=== PATIENT | female | born 1940 | race Caucasian/White ===

== ENCOUNTER 2017-01-08 11:25 | Emergency (ER) | payer MEDICARE ==
[~2017-01-08] VITALS: Ht 162.6 cm; Wt 54.4 kg
[~2017-01-08 11:25] MED LIST: AMBIEN5 MG PO; AMLODIPINE BESYL5 MG PO; ATIVAN0.5 MG PO; BENAZEPRIL HCL20 MG PO; BUPROPION XL300 MG PO; CARBAMAZEPINE200 MG PO; CARVEDILOL25 MG PO; DILTIAZEM 24HR300 MG PO; DOMPERIDONE PO; FLEXERIL10 MG PO; FLUOXETINE HCL20 MG PO; FLUOXETINE HCL40 MG PO; GABAPENTIN300 MG PO; HYDRALAZINE HCL50 MG PO; HYDROCODON-ACE1 EA14 PO; HYDROCODON-ACE1 EAC8 PO; L-METHYLFOLATE15 M1 PO; LEVOTHYROXINE75 MCG PO; LORAZEPAM0.5 MG PO; MICARDIS40 MG PO; MICARDIS80 MG PO; NORCO 5-325 TA1 EACH PO; POTASSIUM CHLO20 ME1 PO; PREDNISONE20 MG PO; RISPERIDONE3 MG PO; TEGRETOL200 MG PO; TRAZODONE HCL50 MG PO; VIBRAMYCIN100 MG PO; VITAMIN B125000 MCG PO; VITAMIN D32000 UNIT PO; WARFARIN SODIUM5 MG PO; XARELTO10 MG PO; ZIPRASIDONE HCL20 MG PO; ZOLPIDEM TARTRA10 MG PO; [UNRECOGNIZED DRUG - OTHER] PO
--- OUTSIDE RECORDS SUMMARY | 2017-01-08 11:27 | XMS ---
Demographics + + + | Address | [address] | | | [place] [address] | + + + | Preferred Language | Unknown | + + + | Marital Status | Unknown | + + + | Islam Affiliation | Unknown | + + + | Race | Unknown | + + + | Ethnic Group | Unknown | + + + Author + + + | Author | [facility] | + + + | Organization | [facility] | + + + | Address | [address] | | | [place] [address] | + + + | Phone | | + + + Care Team Providers + + + + | Care Tree Marker Name | Role | Phone | + + + + Unavailable | Unavailable | + + + + PROBLEMS +---------+ + + +--------+ + + | Type | Condition | ICD9-CM | [id number] | Onset | Condition | SNOMED | | | | Code | Code | Dates | Status | Code | +---------+ + + +--------+ + + | Problem | Hypertensi | I10 | | | Active | [id number] | | | on, | | | | | | | | isolated | | | | | | | | systolic | | | | | | +---------+ + + +--------+ + + | Problem | Hypertensi | I11.9 | | | Active | [id number] | | | ve | | | | | | | | arterioscl | | | | | | | | erotic | | | | | | | | cardiovasc | | | | | | | | ular | | | | | | | | disease | | | | | | +---------+ + + +--------+ + + | Problem | Primary | | F51.01 | | Active | [id number] | | | insomnia | | | | | | +---------+ + + +--------+ + + | 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
--- OUTSIDE RECORDS SUMMARY | 2017-01-08 11:27 | XMS ---
Demographics + + + | Address | [address] | | | [place] [address] | + + + | Preferred Language | Unknown | + + + | Marital Status | Unknown | + + + | Hoahaoism Affiliation | Unknown | + + + | Race | Unknown | + + + | Ethnic Group | Unknown | + + + Author + + + | Author | [facility] | + + + | Organization | [facility] | + + + | Address | [address] | | | [place] [address] | + + + | Phone | | + + + Care Team Providers + + + + | Care Line Crewman Name | Role | Phone | + + + + Unavailable | Unavailable | + + + + PROBLEMS +---------+ + + +--------+ + + | Type | Condition | ICD9-CM | CAB81-[id number] | Onset | Condition | SNOMED | | | | Code | Code | Dates | Status | Code | +---------+ + + +--------+ + + | Problem | Hypertensi | I10 | | | Active | [id number] | | | on, | | | | | | | | isolated | | | | | | | | systolic | | | | | | +---------+ + + +--------+ + + | Problem | Hypertensi | I11.9 | | | Active | [id number] | | | ve | | | [...] | | F51.01 | | Active | 1068349 | | | insomnia | | | | | | +---------+ + + +--------+ + + | 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 | | Active | [id number] | | | sis | | | | | | +---------+ + + +--------+ + + | Problem | Acquired | E03.9 | | | Active | 242350099 | | | hypothyroi | | | | | | | | dism | | | | | | +---------+ + + +--------+ + + | Problem | Bipolar 1 | | F31.9 | | Active | [id number] | | | disorder | | | | | | +---------+ + + +--------+ + + ALLERGIES + + + + +--------+ | Substance | Reaction | Event Type | Date | Status | + + + + +--------+ | Penicillin | swelling at | Drug Allergy | Dec, | Active | | | injection site | | | | | | and ext | | | | + + + + +--------+ | Qvar | somnolence, | Drug Allergy | Dec, | Active | | | palpitation | | | | + + + + +--------+ | Glycerin | Unknown | Drug Allergy | Dec, | Active | + + + + +--------+ | shell fish | vomit | Non Drug | Dec, | Active | | | | Allergy | | | + + + + +--------+ SOCIAL HISTORY No smoking Hx information available PLAN OF CARE + +---------+ | Activity | Details | + +---------+ +---+ | | +---+ + + + | Follow Up | prn Reason:null | + + + | Pending Test | Comp. Metabolic Panel (14) | + + + | Pending Test | Cardiac Panel | + + + | Future/Pending Procedure | EKG | + + + VITAL SIGNS + + + + | Height | 65 in | 2016-12-28 | + + + + | Weight | 121.8 lbs | 2016-12-28 | + + + + | BMI | 20.27 kg/m2 | 2016-12-28 | + + + + | Heart Rate | 85 /min | 2016-12-28 | + + + + | Blood pressure systolic | 155 mm Hg | 2016-12-28 | + + + + | Blood pressure diastolic | 79 mm Hg | 2016-12-28 | + + + + MEDICATIONS + + + + +--------+ + +--------+ | Medicati | Instruct | Dosage | Frequenc | Start | End Date | Duration | Status | | on | ions | | y | Date | | | | + + + + +--------+ + +--------+ | Levothyr | Orally | 1 tablet | 24h | | | | Active | | oxine | Once a | every | | | | | | | Sodium | day | morning | | | | | | | 75 MCG | | on an | | | | | | | | | empty | | | | | | | | | stomach | | | | | | + + + + +--------+ + +--------+ | Risperid | Orally | 1/2 | 24h | | | | Active | | one 3 MG | Once a | tablet | | | | | | | | day | | | | | | | + + + + +--------+ + +--------+ | Ambien | Orally | 1/2 | 24h | | | | Active | | 10 mg | Once a | tablet | | | | | | | | day | at | | | | | | | | | bedtime | | | | | | + + + + +--------+ + +--------+ | Melatoni | Orally | 1 tablet | 24h | | | | Active | | n 3 MG | Once a | at | | | | | | | | day | bedtime | | | | | | | | | as | | | | | | | | | needed | | | | | | | | | with | | | | | | | | | food | | | | | | + + + + +--------+ + +--------+ | L-Methyl | Orally | | 24h | | | | Active | | folate | Once a | | | | | | | | 15 MG | day | | | | | | | + + + + +--------+ + +--------+ | Trazodon | Orally | 2 tablet | | | | | Active | | e HCl 50 | QHS | | | | | | | | mg | | | | | | | | + + + + +--------+ + +--------+ | Vitamin | Orally | 1 | 24h | | | | Active | | D3 5000 | Once a | capsule | | | | | | | UNIT | day | | | | | | | + + + + +--------+ + +--------+ | Vitamin | Orally | 1 tablet | 24h | | | | Active | | B12 100 | Once a | | | | | | | | MCG | day | | | | | | | + + + + +--------+ + +--------+ | Carbamaz | Orally | 1 tablet | 12h | | | | Active | | epine | bid | | | | | | | | 200 MG | | | | | | | | + + + + +--------+ + +--------+ | Omeprazo | Orally | 1 | 24h | | | | Active | | le 20 MG | Once a | capsule | | | | | | | | day | | | | | | | + + + + +--------+ + +--------+ | Duloxeti | Orally | 1 | 24h | | | | Active | | ne HCl | Once a | capsule | | | | | | | 60 MG | day | | | | | | | + + + + +--------+ + +--------+ | Qvar 80 | Inhalati | 1 puff | 12h | | | | Active | | MCG/ACT | on Twice | | | | | | | | | a day | | | | | | | + + + + +--------+ + +--------+ | Vitamin | Orally | | 12h | | | | Active | | C 1000 | bid | | | | | | | | mg | | | | | | | | + + + + +--------+ + +--------+ | Gabapent | Orally | 3 | 8h | | | | Active | | in 300 | tid | capsule | | | | | | | MG | | | | | | | | + + + + +--------+ + +--------+ | Amlodipi | Orally | 1 tablet | 12h | | | | Active | | ne | twice a | | | | | | | | Besylate | day | | | | | | | | 5 MG | | | | | | | | + + + + +--------+ + +--------+ | Benadryl | Orally | 1 tablet | 12h | | | | Active | | Allergy | bid | as | | | | | | | 25 MG | | needed | | | | | | + + + + +--------+ + +--------+ | Benazepr | Orally | 1 tablet | 24h | | | | Active | | il HCl | daily | | | | | | | | 40 MG | | | | | | | | + + + + +--------+ + +--------+ | Multivit | | | | | | | Active | | amins | | | | | | | | + + + + +--------+ + +--------+ RESULTS No Results PROCEDURES + + + + + | Procedure | Date Ordered | Related Diagnosis | Body Site | + + + + + | Est Level IV | December 28, 2016 | | | | Extended | | | | + + + + + | (office) | December 28, 2016 | | | | ELECTROCARDIOGRAM | | | | | REPORT | | | | + + + + + IMMUNIZATIONS No Known Immunizations"
--- OUTSIDE RECORDS SUMMARY | 2017-01-08 11:27 | XMS ---
Demographics + + + | Address | [address] | | | [place] [address] | + + + | Preferred Language | Unknown | + + + | Marital Status | Unknown | + + + | Jewish Affiliation | Unknown | + + + | Race | Unknown | + + + | Ethnic Group | Unknown | + + + Author + + + | Author | [facility] | + + + | Organization | [facility] | + + + | Address | [address] | | | [place] [address] | + + + | Phone | | + + + Care Team Providers + + + + | Care Hot Tar Roofer Helper Name | Role | Phone | + + + + Unavailable | Unavailable | + + + + PROBLEMS +---------+ + + +--------+ + + | Type | Condition | ICD9-CM | FVO51-[id number] | Onset | Condition | SNOMED | | | | Code | Code | Dates | Status | Code | +---------+ + + +--------+ + + | Problem | Hypertensi | I10 | | | Active | [id number] | | | on, | | | | | | | | isolated | | | | | | | | systolic | | | | | | +---------+ + + +--------+ + + | Problem | Hypertensi | I11.9 | | | Active | 67766269 | | | ve | | | [...] | | F51.01 | | Active | 6197436 | | | insomnia | | | | | | +---------+ + + +--------+ + + | 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 | | Active | [id number] | | | sis | | | | | | +---------+ + + +--------+ + + | Problem | Acquired | E03.9 | | | Active | [id number] | | | hypothyroi | | | | | | | | dism | | | | | | +---------+ + + +--------+ + + | Problem | Bipolar 1 | | F31.9 | | Active | [id number] | | | disorder | | | | | | +---------+ + + +--------+ + + ALLERGIES Unknown Allergies SOCIAL HISTORY No smoking Hx information available PLAN OF CARE VITAL SIGNS MEDICATIONS + + + + +--------+ + +--------+ | Medicati | Instruct | Dosage | Frequenc | Start | End Date | Duration | Status | | on | ions | | y | Date | | | | + + + + +--------+ + +--------+ | Levothyr | Orally | 1 tablet | 24h | | | 90 days | Active | | oxine | Once [...] +--------+ + +--------+ RESULTS No Results PROCEDURES No Known procedures IMMUNIZATIONS No Known Immunizations"
--- OUTSIDE RECORDS SUMMARY | 2017-01-08 11:27 | XMS ---
Demographics + + + | Address | [address] | | | [place] [address] | + + + | Preferred Language | Unknown | + + + | Marital Status | Unknown | + + + | Congregation Affiliation | Unknown | + + + | Race | Unknown | + + + | Ethnic Group | Unknown | + + + Author + + + | Author | [facility] | + + + | Organization | [facility] | + + + | Address | [address] | | | [place] [address] | + + + | Phone | | + + + Care Team Providers + + + + | Care Pig Casting Machine Operator Name | Role | Phone | + + + + Unavailable | Unavailable | + + + + PROBLEMS +---------+ + + +--------+ + + | Type | Condition | ICD9-CM | IMO03-EK | Onset | Condition | SNOMED | | | | Code | Code | Dates | Status | Code | +---------+ + + +--------+ + + | Problem | Hypertensi | I10 | | | Active | [id number] | | | on, | | | | | | | | isolated | | | | | | | | systolic | | | | | | +---------+ + + +--------+ + + | Problem | Hypertensi | I11.9 | | | Active | 80480660 | | | ve | | | [...] | | F51.01 | | Active | 5604372 | | | insomnia | | | | | | +---------+ + + +--------+ + + | 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
--- OUTSIDE RECORDS SUMMARY | 2017-01-08 11:27 | XMS ---
Demographics + + + | Address | [address] | | | [place] [address] | + + + | Preferred Language | Unknown | + + + | Marital Status | Unknown | + + + | Christianity Affiliation | Unknown | + + + | Race | Unknown | + + + | Ethnic Group | Unknown | + + + Author + + + | Author | [facility] | + + + | Organization | [facility] | + + + | Address | [address] | | | [place] [address] | + + + | Phone | | + + + Care Team Providers + + + + | Care Golf Starter And Ranger Name | Role | Phone | + + + + Unavailable | Unavailable | + + + + PROBLEMS + + + + + + + + | Type | Condition | ICD9-CM | [id number] | Onset | Condition | SNOMED | | | | Code | Code | Dates | Status | Code | + + + + + + + + | 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 | | 26 November, | Active | [id number] | | | (dislocati | | | 2016 | | | | | on of | | | | | | | | temporoman | | | | | | | | dibular | | | | | | | | joint), | | | | | | | | initial | | | | | | | | encounter | | | | | | + + + + + + + + | Problem | Hypertensi | I10 | | | Active | [id number] | | | on, | | | | | | | | isolated | | | | | | | | systolic | | | | | | + + + + + + + + | Problem | Hypertensi | I11.9 | | | Active | 95571227 | | | ve | | | | | | | | arterioscl | | | | | | | | erotic | | | | | | | | cardiovasc | | | | | | | | ular | | | | | | | | disease | | | | | | + + + + + + + + | Problem | Primary | | F51.01 | | Active | 7669755 | | | insomnia | | | | | | + + + + + + + + | 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 | | Active | 349945396 | | | sis | | | | | | + + + + + + + + | Problem | Acquired | E03.9 | | | Active | 691051910 | | | hypothyroi | | | | | | | | dism | | | | | | + + + + + + + + | Problem | Bipolar 1 | | F31.9 | | Active | [id number] | | | disorder | | | | | | + + + + + + + + ALLERGIES + + + + +--------+ | Substance | Reaction | Event Type | Date | Status | + + + + +--------+ | Penicillin | swelling at | Drug Allergy | November, | Active | | | injection site | | | | | | and ext | | | | + + + + +--------+ | Qvar | somnolence, | Drug Allergy | November, | Active | | | palpitation | | | | + + + + +--------+ | Glycerin | Unknown | Drug Allergy | November, | Active | + + + + +--------+ | shell fish | vomit | Non Drug | 25 May, 2017 | Active | | | | Allergy | | | + + + + +--------+ SOCIAL HISTORY No smoking Hx information available PLAN OF CARE VITAL SIGNS + + + + | Height | 65 in | 2016-11-26 | + + + + | Weight | 122.4 lbs | 2016-11-26 | + + + + | BMI | 20.37 kg/m2 | 2016-11-26 | + + + + | Temperature | 97.6 degrees Fahrenheit | 2016-11-26 | + + + + | Heart Rate | 59 /min | 2016-11-26 | + + + + | Blood pressure systolic | 113 mm Hg | 2016-11-26 | + + + + | Blood pressure diastolic | 48 mm Hg | 2016-11-26 | + + + + MEDICATIONS + + + + +--------+ + +--------+ | Medicati | Instruct | Dosage | Frequenc | Start | End Date | Duration | Status | | on | ions | | y | Date | | | | + + + + +--------+ + +--------+ | Ambien | Orally | 1 tablet | 24h | | | | Active | | 10 MG | Once a | at | | | | | | | | day | bedtime | | | | | | + + + + +--------+ + +--------+ | Prozac | Orally | 1 | 24h | | | | Active | | 60 MG | Once a | capsule | | | | | | | | day | in the | | | | | | | | | morning | | | | | | + [...] | | | | Active | | reza | | | | | | | | | Adult - | | | | | | | [...] | | | Active | | D3 2000 | Once a | capsule | | [...] | | | Active | | C 500 mg | bid | | | | | | | + + + + +--------+ + +--------+ | Domperid | | 8 tab | 24h | | | | Active | | one 10 | | | | | | | | | mg | | | | | | | | + + + + +--------+ + +--------+ | Gabapent | Orally | 2 | | | | | Active | | in 300 | four | capsule | | | | | | | MG | times | | | | | | | | | daily | | | | | [...] + +--------+ | Trazodon | Orally | 1 tablet | | | | | Active [...] + +--------+ | Amlodipi | Orally | 2 tablet | | | | | Active | | ne | QHS | | | | | | | | Besylate | | | | | | | [...] + + + + | Est Level III | November 26, 2016 | | | | Intermediate | | | | + + + + + IMMUNIZATIONS No Known Immunizations"
[2017-01-08] MEDS ORDERED: L-METHYLFOLATE15 M1 PO (12:19)
[2017-01-08] MEDS ORDERED: DULOXETINE HCL60 MG PO (12:21)
[2017-01-08] MEDS ORDERED: TRAZODONE HCL100 MG PO (12:22)
[2017-01-08] MEDS ORDERED: OMEPRAZOLE20 MG PO (12:26)
[2017-01-08] MEDS ORDERED: VITAMIN D2000 UNIT PO (12:26)
[2017-01-08] MEDS ORDERED: BENADRYL ALLERG25 MG PO (12:26)
[2017-01-08] MEDS ORDERED: NEURONTIN300 MG PO (12:26)
[2017-01-08] MEDS ORDERED: VITAMIN B-12100 MCG PO (12:26)
[2017-01-08] MEDS ORDERED: VITAMIN C1000 MG PO (12:26)
[2017-01-08] MEDS ORDERED: PROZAC40 MG PO (12:26)
[2017-01-08] MEDS ORDERED: CYMBALTA60 MG (12:26)
[2017-01-08] MEDS ORDERED: RISPERIDONE3 MG PO (12:26)
== END 2017-01-08 13:26 | disposition home or self-care (01) ==
LOC: ED 11:25
DX: S06.0X9A Concussion with loss of consciousness of unspecified duration, initial encounter (principal); R42 Dizziness and giddiness; E87.1 Hypo-osmolality and hyponatremia; F31.9 Bipolar disorder, unspecified; I10 Essential (primary) hypertension; E03.9 Hypothyroidism, unspecified; J44.9 Chronic obstructive pulmonary disease, unspecified; G50.8 Other disorders of trigeminal nerve; Z88.0 Allergy status to penicillin; Z91.013 Allergy to seafood; Z91.018 Allergy to other foods; W19.XXXA Unspecified fall, initial encounter
CPT/HCPCS: 70450; 80053; 80156; 85025; 99284

== ENCOUNTER 2017-06-27 08:30 | Emergency (ER) | payer MEDICARE ==
[~2017-06-27] VITALS: Ht 162.6 cm; Wt 54.4 kg
--- OUTSIDE RECORDS SUMMARY | ~2017-06-27 | XMS ---
Demographics + + + | Address | [address] | | | [place] [address] | + + + | Preferred Language | Unknown | + + + | Marital Status | Unknown | + + + | Temple Affiliation | Unknown | + + + | Race | Unknown | + + + | Ethnic Group | Unknown | + + + Author + + + | Author | [facility] | + + + | Organization | [facility] | + + + | Address | [address] | | | [place] [address] | + + + | Phone | | + + + Care Team Providers + + + + | Care Film Processing Utility Worker Name | Role | Phone | + + + + Unavailable | Unavailable | + + + + PROBLEMS +---------+ + + +--------+ + + | Type | Condition | ICD9-CM | [id number] | Onset | Condition | SNOMED | | | | Code | Code | Dates | Status | Code | +---------+ + + +--------+ + + | Problem | Hypertensi | I10 | | | Active | [id number] | | | on, | | | | | | | | isolated | | | | | | | | systolic | | | | | | +---------+ + + +--------+ + + | Problem | Hypertensi | I11.9 | | | Active | 93413699 | | | ve | | | [...] | | F51.01 | | Active | 8199572 | | | insomnia | | | | | | +---------+ + + +--------+ + + | 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
--- OUTSIDE RECORDS SUMMARY | ~2017-06-27 | XMS ---
Demographics + + + | Address | [address] | | | [place] [address] | + + + | Preferred Language | Unknown | + + + | Marital Status | Unknown | + + + | Muslim Affiliation | Unknown | + + + | Race | Unknown | + + + | Ethnic Group | Unknown | + + + Author + + + | Author | [facility] | + + + | Organization | [facility] | + + + | Address | [address] | | | [place] [address] | + + + | Phone | | + + + Care Team Providers + + + + | Care Button Breaker Name | Role | Phone | + + + + Unavailable | Unavailable | + + + + PROBLEMS +---------+ + + +--------+ + + | Type | Condition | ICD9-CM | XDB89-RE | Onset | Condition | SNOMED | | | | Code | Code | Dates | Status | Code | +---------+ + + +--------+ + + | Problem | Hypertensi | I10 | | | Active | [id number] | | | on, | | | | | | | | isolated | | | | | | | | systolic | | | | | | +---------+ + + +--------+ + + | Problem | Hypertensi | I11.9 | | | Active | [id number] | | | ve | | | [...] | | F51.01 | | Active | 5607210 | | | insomnia | | | | | | +---------+ + + +--------+ + + | 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 | | Active | [id number] | | | sis | | | | | | +---------+ + + +--------+ + + | Problem | Acquired | E03.9 | | | Active | [id number] | | | hypothyroi | | | | | | | | dism | | | | | | +---------+ + + +--------+ + + | Problem | Bipolar 1 | | F31.9 | | Active | [id number] | | | disorder | | | | | | +---------+ + + +--------+ + + ALLERGIES + + + + +--------+ | Substance | Reaction | Event Type | Date | Status | + + + + +--------+ | Penicillin | swelling at | Drug Allergy | 03 Apr, 2017 | Active | | | injection site | | | | | | and ext | | | | + + + + +--------+ | Qvar | somnolence, | Drug Allergy | Apr, | Active | | | palpitation | | | | + + + + +--------+ | Glycerin | Unknown | Drug Allergy | Apr, | Active | + + + + +--------+ | shell fish | vomit | Non Drug | Apr, | Active | | | | Allergy | | | + + + + +--------+ SOCIAL HISTORY Never Assessed PLAN OF CARE + +---------+ | Activity | Details | + +---------+ +---+ | | +---+ + + + | Follow Up | 6 Months Reason:null | + + + | Future/Pending Procedure | EKG | + + + VITAL SIGNS + + + + | Height | 65 in | 2017-04-06 | + + + + | Weight | 128.2 lbs | 2017-04-06 | + + + + | BMI | 21.33 kg/m2 | 2017-04-06 | + + + + | Heart Rate | 63 /min | 2017-04-06 | + + + + | Blood pressure systolic | 152 mm Hg | 2017-04-06 | + + + + | Blood pressure diastolic | 55 mm Hg | 2017-04-06 | + + + + MEDICATIONS + + + + + + + +--------+ | Medicati | Instruct | Dosage | Frequenc | Start | End Date | Duration | Status | | on | ions | | y | Date | | | | + + + + + + + +--------+ | L-Methyl | Orally | | 24h | | | | Active | | folate | Once a | | | | | | | | 15 MG | day | | | | | | | + + + + + + + +--------+ | Ambien | Orally | 1/2 | 24h | | | | Active | | 10 mg | Once a | tablet | | | | | | | | day | at | | | | | | | | | bedtime | | | | | | + + + + + + + +--------+ | Benadryl | Orally | 1 tablet | 12h | | | | Active | | Allergy | bid | as | | | | | | | 25 MG | | needed | | | | | | + + + + + + + +--------+ | Duloxeti | Orally | 1 | 24h | | | | Active | | ne HCl | Once a | capsule | | | | | | | 60 MG | day | | | | | | | + + + + + + + +--------+ | Amlodipi | Orally | 1 tablet | 12h | | | | Active | | ne | twice a | | | | | | | | Besylate | day | | | | | | | | 5 MG | | | | | | | | + + + + + + + +--------+ | Melatoni | Orally | [...] + + + + + + + +--------+ | Vitamin | Orally | 1 | 24h | | | | Active | | D3 5000 | Once a | capsule | | | | | | | UNIT | day | | | | | | | + + + + + + + +--------+ | Triamcin | External | 1 | 12h | 03 Oct, | | 14 days | Active | | olone | ly Twice | applicat | | 2017 | | | | | Acetonid | a day | ion to | | | | | | | e 0.5 % | | affected | | | | | | | | | area | | | | | | + + + + + + + +--------+ | Acetyl | Oral | 1 | 12h | 03 Oct, | | | Active | | L-Carnit | Twice a | capsule | | 2017 | | | | | ine 400 | day | | | | | | | | mg | | | | | | | | + + + + + + + +--------+ | Benazepr | Orally | 1 tablet | 24h | | | | Active | | il HCl | daily | | | | | | | | 40 MG | | | | | | | | + + + + + + + +--------+ | Benazepr | Orally | 1 tablet | 24h | | | 30 | Active | | il HCl | daily | | | | | | | | 40 MG | | | | | | | | + + + + + + + +--------+ | Vitamin | Orally | 1 tablet | 24h | | | | Active | | B12 100 | Once a | | | | | | | | MCG | day | | | | | | | + + + + + + + +--------+ | Multivit | | | | | | | Active | | amins | | | | | | | | + + + + + + + +--------+ | Omeprazo | Orally | 1 | 24h | | | | Active | | le 20 MG | Once a | capsule | | | | | | | | day | | | | | | | + + + + + + + +--------+ | Levothyr | Orally | [...] + + + + + + + +--------+ | Vitamin | Orally | | 12h | | | | Active | | C 1000 | bid | | | | | | | | mg | | | | | | | | + + + + + + + +--------+ | Risperid | Orally | 1/2 | 24h | | | | Active | | one 3 MG | Once a | tablet | | | | | | | | day | | | | | | | + + + + + + + +--------+ | Gabapent | Orally | 3 | 8h | | | | Active | | in 300 | tid | capsule | | | | | | | MG | | | | | | | | + + + + + + + +--------+ | Alpha | Oral | 1 | 12h | 03 Oct, | | | Active | | Lipoic | Twice a | capsule | | 2017 | | | | | Acid 200 | day | | | | | | | | mg | | | | | | | | + + + + + + + +--------+ | Carbamaz | Orally | 1 tablet | 12h | | | | Active | | epine | bid | | | | | | | | 200 MG | | | | | | | | + + + + + + + +--------+ | Trazodon | Orally | 2 tablet | | | | | Active | | e HCl 50 | QHS | | | | | | | | mg | | | | | | | | + + + + + + + +--------+ | Qvar 80 | Inhalati | 1 puff | 12h | | | | Active | | MCG/ACT | on Twice | | | | | | | | | a day | | | | | | | + + + + + + + +--------+ RESULTS No Results PROCEDURES No Known procedures IMMUNIZATIONS No Known Immunizations MEDICAL (GENERAL) HISTORY + + + + | Type | Description | Date | + + + + | Medical History | Bipolar d/o dx'ed 1991, | | | | [facility] | | | | [facility] | | + + + + | Medical History | Hypertension | | + + + + | Medical History | Hypothyroid | | + + + + | Medical History | Celiac Disease 04/2012 | | + + + + | Medical History | Chronic Constipation | | + + + + | Medical History | Menopause age 41 | | + + + + | Medical History | Pulmonary Embolis 12/16/12 | | | | post cholecystectomy | | + + + + | Medical History | Anticoagulation started | | | | 12/16/12 coumadin -ended | | | | 04/03/13 | | + + + + | Medical History | Hyponatremia consistant | | | | with water intoxication | | | | 01/03/13 | | + + + + | Medical History | COPD | | + + + + | Medical History | severe Cervical Stenosis | | | | with myelopathy: Cervical | | | | Spinal Cord Compression, | | | | Cervical Spondylosis and | | | | Myelopathy, 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 s/p anterior cervical | | | | discectomy and fusion C3-4, | | | | C4-5 01/17/15 | | + + + + | Medical History | Gastroparesis | | + + + + | Medical History | Estimated dietary calcium | | | | intake 400mg/day 09/12/12 | | + + + + | Medical History | ABIM Survey for patients | | | | with high blood pressure | | | | provided. 11/10/12 | | + + + + | Medical History | Shingles vaccine | | | | recommended 09/12/12 | | + + + + | Medical History | Pt does not get | | | | vaccinations 09/12/12 | | + + + + | Surgical History | Operator Weapon Locating Radar | | | | Suri Bean | | + + + + | Surgical History | Tonsillectomy | 1948 | + + + + | Surgical History | Squamous cell cancer R | 2001 | | | thigh | | + + + + | Surgical History | Colonoscopy | 2009 | + + + + | Surgical History | Mammogram | many yrs ago | + + + + | Surgical History | Papsmear | 2008 | + + + + | Surgical History | Coronary angiogram - 10-15% | 2006 | | | stenosis per pt. | | + + + + | Surgical History | DEXA | 1997 | + + + + | Surgical History | laproscopic | 12/14/12 | | | Dr Jero Bennett | | + + + + | Surgical History | PFT - FVC 71%, FEV1 65%, | 02/21/13 | | | FEV1/FVC 91% (moderate | | | | obstructive airway disease, | | | | moderately severe | | | | diffusing defect) | | + + + + | Surgical History | 48hr holter | 03/14/13 | + + + + | Surgical History | Sacral fractures & Right | 09/01/13 | | | pubic bone fracture - MRI R | | | | hip | | + + + + | Surgical History | Anterior cervical | 01/17/15 | | | discectomy and fusion C3-4, | | | | C4-5 Dr Garcia | | + + + + | Surgical History | R hip ORIF Dr Thorpe | 08/28/15 | + + + + | Surgical History | EGD Dr Prado: LA grade B | 04/09/16 | | | esophagitis, gastric | | | | erosion, hiatal hernia | | + + + + | Hospitalization History | [facility] re: acute cholecystitis | 12/13/12 | + + + + | Hospitalization History | [facility] re: SOB, PE | 12/16-12/19/12 | + + + + | Hospitalization History | [facility] re: SOB | 02/01/13 | + + + + | Hospitalization History | [facility] re: fall | 06/05/13 | + + + + | Hospitalization History | [facility] | 01/17-01/18/15 | | | [place] | | + + + + | Hospitalization History | [facility] re: fall, hip | 08/27-08/30/15 | | | fracture d/c to SNF | | + + + + | Hospitalization History | [facility] re: fall | 01/08/17 | + + + +"
--- OUTSIDE RECORDS SUMMARY | ~2017-06-27 | XMS | Clinical Summary ---
Demographics + + + | Address | [address] | | | [place] [address] | + + + | Home Phone | | + + + | Preferred Language | Unknown | + + + | Marital Status | Single | + + + | Uatsdin Affiliation | Unknown | + + + | Race | White | + + + | Ethnic Group | Not or | + + + Author + + + | Author | [facility] | + + + | Organization | [facility] | + + + | Address | Unknown | + + + | Phone | Unavailable | + + + Support +------+ + + + +-------+ | Name | Relationship | Address | Phone | +------+ + + + +-------+ ECON | [address] | [place], [place] | [address] | +------+ + + + +-------+ Care Team Providers + +------+-------+ | Care Veterinary Technologist Name | Role | Phone | + +------+-------+ | Patrick Villalta DO | PP | tel | + +------+-------+ Source Comments LEAH is fully live on both [facility] Ambulatory and [facility] InPatient.[facility] Allergies Not on File Current Medications Not on file Active Problems Not [...] on file | | + + + Plan of Treatment + + + + + | Health Maintenance | Due Date | Last Done | Comments | + + + + + | INFLUENZA VACCINE | | | | | (FLU SHOT) | 7 | | | + + + + + Results Not on filefrom Last 3 Months"
--- OUTSIDE RECORDS SUMMARY | ~2017-06-27 | XMS ---
Demographics + + + | Address | [address] | | | [place] [address] | + + + | Preferred Language | Unknown | + + + | Marital Status | Unknown | + + + | Episcopalian Affiliation | Unknown | + + + | Race | Unknown | + + + | Ethnic Group | Unknown | + + + Author + + + | Author | [facility] | + + + | Organization | [facility] | + + + | Address | [address] | | | [place] [address] | + + + | Phone | | + + + Care Team Providers + + + + | Care Branch Officer Name | Role | Phone | + + + + Unavailable | Unavailable | + + + + PROBLEMS +---------+ + + +--------+ + + | Type | Condition | ICD9-CM | [id number] | Onset | Condition | SNOMED | | | | Code | Code | Dates | Status | Code | +---------+ + + +--------+ + + | Problem | Hypertensi | I10 | | | Active | [id number] | | | on, | | | | | | | | isolated | | | | | | | | systolic | | | | | | +---------+ + + +--------+ + + | Problem | Hypertensi | I11.9 | | | Active | 36253547 | | | ve | | | [...] | | F51.01 | | Active | 9057160 | | | insomnia | | | | | | +---------+ + + +--------+ + + | 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 | | Active | 112223957 | | | sis | | | | | | +---------+ + + +--------+ + + | Problem | Acquired | E03.9 | | | Active | [id number] | | | hypothyroi | | | | | | | | dism | | | | | | +---------+ + + +--------+ + + | Problem | Bipolar 1 | | F31.9 | | Active | [id number] | | | disorder | | | | | | +---------+ + + +--------+ + + ALLERGIES + + + + +--------+ | Substance | Reaction | Event Type | Date | Status | + + + + +--------+ | Penicillin | swelling at | Drug Allergy | 20 Jan, 2017 | Active | | | injection site | | | | | | and ext | | | | + + + + +--------+ | Qvar | somnolence, | Drug Allergy | Jan, | Active | | | palpitation | | | | + + + + +--------+ | Glycerin | Unknown | Drug Allergy | Jan, | Active | + + + + +--------+ | shell fish | vomit | Non Drug | Jan, | Active | | | | Allergy | | | + + + + +--------+ SOCIAL HISTORY Never Assessed PLAN OF CARE + +---------+ | Activity | Details | + +---------+ +---+ | | +---+ + + + | Follow Up | prn Reason:null | + + + VITAL SIGNS + + + + | Height | 65 in | 2017-01-21 | + + + + | Weight | 121.4 lbs | 2017-01-21 | + + + + | BMI | 20.20 kg/m2 | 2017-01-21 | + + + + | Heart Rate | 88 /min | 2017-01-21 | + + + + | Blood pressure systolic | 150 mm Hg | 2017-01-21 | + + + + | Blood pressure diastolic | 69 mm Hg | 2017-01-21 | + + + + MEDICATIONS + [...] 1991, | | | | [facility] | | | | [facility] | [...] + + + | Surgical History | [address] | | | | Suri Bean | [...] + | Surgical History | DEXA | 1996 | + + + + | [facility] | | | Suri Cameron | | + + + + | Hospitalization History | [facility] re: fall, hip | 08/27-08/30/15 | | | fracture d/c to SNF | | + + + + | Hospitalization History | [facility] re: fall | 01/08/17 | + + + +"
--- OUTSIDE RECORDS SUMMARY | ~2017-06-27 | XMS ---
Demographics + + + | Address | [address] | | | [place] [address] | + + + | Preferred Language | Unknown | + + + | Marital Status | Unknown | + + + | Holiness Affiliation | Unknown | + + + | Race | Unknown | + + + | Ethnic Group | Unknown | + + + Author + + + | Author | [facility] | + + + | Organization | [facility] | + + + | Address | [address] | | | [place] [address] | + + + | Phone | | + + + Care Team Providers + + + + | Care Golf Course Designer Name | Role | Phone | + + + + Unavailable | Unavailable | + + + + PROBLEMS +---------+ + + +--------+ + + | Type | Condition | ICD9-CM | [id number] | Onset | Condition | SNOMED | | | | Code | Code | Dates | Status | Code | +---------+ + + +--------+ + + | Problem | Hypertensi | I10 | | | Active | [id number] | | | on, | | | | | | | | isolated | | | | | | | | systolic | | | | | | +---------+ + + +--------+ + + | Problem | Hypertensi | I11.9 | | | Active | 44236648 | | | ve | | | [...] | | F51.01 | | Active | 1957209 | | | insomnia | | | | | | +---------+ + + +--------+ + + | 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 | | Active | 949651155 | | | sis | | | | | | +---------+ + + +--------+ + + | Problem | Acquired | E03.9 | | | Active | [id number] | | | hypothyroi | | | | | | | | dism | | | | | | +---------+ + + +--------+ + + | Problem | Bipolar 1 | | F31.9 | | Active | [id number] | | | disorder | | | [...] + + | Est Level III | January 21, 2017 | | | | Intermediate | | | | + + + + + IMMUNIZATIONS No Known Immunizations"
[~2017-06-27 08:30] MED LIST changes: +BENADRYL ALLERG25 MG PO; +CYMBALTA60 MG; +DULOXETINE HCL60 MG PO; +NEURONTIN300 MG PO; +OMEPRAZOLE20 MG PO; +PROZAC40 MG PO; +TRAZODONE HCL100 MG PO; +VITAMIN B-12100 MCG PO; +VITAMIN C1000 MG PO; +VITAMIN D2000 UNIT PO
[2017-06-27] MEDS ORDERED: METHYLPREDNISOLO4 M1 PO (08:51)
[2017-06-27] MEDS ORDERED: ALLEGRA ALLERG180 MG PO (08:51)
== END 2017-06-27 09:00 | disposition home or self-care (01) ==
LOC: ED 08:30
DX: L23.9 Allergic contact dermatitis, unspecified cause (principal); F31.9 Bipolar disorder, unspecified; I10 Essential (primary) hypertension; E03.9 Hypothyroidism, unspecified; Z86.711 Personal history of pulmonary embolism; Z90.49 Acquired absence of other specified parts of digestive tract; Z98.890 Other specified postprocedural states; Z88.0 Allergy status to penicillin; Z91.013 Allergy to seafood; Z91.018 Allergy to other foods
CPT/HCPCS: 99283

== ENCOUNTER 2018-08-05 16:45 | Emergency (ER) | payer MEDICARE ==
[~2018-08-05] VITALS: Ht 162.6 cm; Wt 52.2 kg
[~2018-08-05 16:45] MED LIST changes: +ALLEGRA ALLERG180 MG PO; +METHYLPREDNISOLO4 M1 PO
== END 2018-08-05 17:22 | disposition home or self-care (01) ==
LOC: ED 16:45
DX: S09.90XA Unspecified injury of head, initial encounter (principal); W01.198A Fall on same level from slipping, tripping and stumbling with subsequent striking against other object, initial encounter; F31.9 Bipolar disorder, unspecified; I10 Essential (primary) hypertension; E03.9 Hypothyroidism, unspecified; J44.9 Chronic obstructive pulmonary disease, unspecified; Z88.0 Allergy status to penicillin; Z91.013 Allergy to seafood; Z88.8 Allergy status to other drugs, medicaments and biological substances; Z79.899 Other long term (current) drug therapy
CPT/HCPCS: 99283

== ENCOUNTER 2019-05-08 10:43 | Emergency (ER) | payer MEDICARE ==
--- OUTSIDE RECORDS SUMMARY | ~2019-05-08 | XMS | Encounter Summary ---
Demographics + + + | Address | [address] | | | [place] [address] | + + + | Home Phone | | + + + | Preferred Language | Unknown | + + + | Marital Status | Single | + + + | Episcopalian Affiliation | Unknown | + + + | Race | White | + + + | Ethnic Group | Not or | + + + Author + + + | Author | [facility] | + + + | Organization | [facility] | + + + | Address | Unknown | + + + | Phone | Unavailable | + + + Support + + + + + | Name | Relationship | Address | Phone | + + + + + | Ankita Godoy | ECON | [address] | | | | [address], [place] | | | | | [address] | | + + + + + Care Team Providers + +------+ + | Care Kettle Fry Cook Operator Name | Role | Phone | + +------+ + | Patrick Villalta DO | PCP | | + +------+ + Encounter Details +--------+ + + + + | Date | Type | Department | Care Team | Description | +--------+ + + + + | 01/10/ | Abstract | [facility] | Clinic, | | | 2012 | | [facility] [address] | Gastroenterology | | | | | [facility] | | | | | | Mailcode: [place] | | | | | | [facility] | | | | | | Healing, [address] | | | | | | [facility] [place] | | | | | | [address] | | | | | | [phone] | | | +--------+ + + + + Social History + +-------+ +--------+------+ | Tobacco Use | Types | Packs/Day | Years | Date | | | | | Used | | + +-------+ +--------+------+ | Never Assessed | | | | | + +-------+ +--------+------+ + + + | Sex Assigned at | Date Recorded | | | | + + + | Not on file | | + + + + + + + | Job Start Date | Occupation | Industry | + + + + | Not on file | Not on file | Not on file | + + + + + + + + | Travel History | Travel Start | Travel End | + + + + + + | No recent travel history available. | + + documented as of this encounter Plan of Treatment Not on filedocumented as of this encounter Visit Diagnoses Not on filedocumented in this encounter"
--- OUTSIDE RECORDS SUMMARY | ~2019-05-08 | XMS | Clinical Summary ---
Demographics + + + | Address | [address] | | | [place] [address] | + + + | Home Phone | | + + + | Preferred Language | Unknown | + + + | Marital Status | Single | + + + | Scientology Affiliation | Unknown | + + + | Race | White | + + + | Ethnic Group | Not or | + + + Author + + + | Author | [facility] | + + + | Organization | [facility] | + + + | Address | Unknown | + + + | Phone | Unavailable | + + + Support + + + + + | Name | Relationship | Address | Phone | + + + + + | Pat Walt | ECON | [address] | | | | [place], [place] | | | | | [address] | | + + + + + Care Team Providers + +------+ + | Care Wet Trimmer Name | Role | Phone | + +------+ + | Patrick Villalta DO | PCP | | + +------+ + Source Comments LEAH is fully live on both [facility] and [facility] InPatient.[facility] Allergies Not on File Medications Not on file Active Problems Not on file Social History + +-------+ +--------+------+ | Tobacco [...] recent travel history available. | + + Last Filed Vital Signs Not on file Plan of Treatment + + + + + | Health Maintenance | Due Date | Last Done | Comments | + + + + + | Pneumococcal | | | | | vaccination (1 of 2 | 7 | | | | - PCV13) | | | | + + + + + | Influenza (Flu) | | | | | vaccination (#1) | 9 | | | + + + + + Results Not on filefrom Last 3 Months"
--- OUTSIDE RECORDS SUMMARY | ~2019-05-08 | XMS | Clinical Summary ---
Demographics + + + | Address | [address] | | | [place] [address] | + + + | Home Phone | | + + + | Preferred Language | Unknown | + + + | Marital Status | Single | + + + | Anabaptism Affiliation | Unknown | + + + | Race | White | + + + | Ethnic Group | Not or | + + + Author + + + | Author | [facility] | + + + | Organization | [facility] | + + + | Address | Unknown | + + + | Phone | Unavailable | + + + Support + + + + + | Name | Relationship | Address | Phone | + + + + + | Pat Walt | ECON | [address] | | | | [place], [place] | | | | | [address] | | + + + + + Care Team Providers + +------+ + | Care Hearing Therapist Name | Role | Phone | + +------+ + | Patrick Villalta DO | PCP | | + +------+ + Source Comments LEAH is fully live on both [facility] Ambulatory and [facility] InPatient.[facility] Allergies Not on File Medications Not on [...]
--- OUTSIDE RECORDS SUMMARY | ~2019-05-08 | XMS | Clinical Summary ---
Demographics + + + | Address | [address] | | | [place] [address] | + + + | Home Phone | | + + + | Preferred Language | Unknown | + + + | Marital Status | Single | + + + | Confucianism Affiliation | Unknown | + + + | Race | Unknown | + + + | Ethnic Group | Unknown | + + + Author + + + | Author | [facility] | | | and [place] | + + + | Organization | [facility] | | | and [facility] | + + + | Address | Unknown | + + + | Phone | Unavailable | + + + Support + + +---------+ + | Name | Relationship | Address | Phone | + + +---------+ + | Ankita Godoy | NA | | | | | NA, | | + + +---------+ + Care Team Providers + +------+ + | Care Stave Log Ripsaw Operator Name | Role | Phone | + +------+ + | Patrick Villalta DO | PCP | | + +------+ + Allergies + + + + + + | Active Allergy | Reactions | Severity | Noted | Comments | | | | | Date | | + + + + + + | Penicillins | Swelling | Low | 02/23/20 | After injection my | | | | | 13 | whole leg swelled | | | | | | up | + + + + + + | Shellfish | Nausea And Vomiting | Low | 02/08/20 | | | | | | 14 | | + + + + + + | Adhesive & Tape | Rash | Low | 02/28/20 | "Adhesive Tape" | | | | | 14 | | + + + + + + Medications + + + +---------+------+------+-------+ | Medication | Sig | Dispensed | Refills | Star | End | Statu | | | | | | t | Date | s | | | | | | Date | | | + + + +---------+------+------+-------+ | LORazepam (ATIVAN) | Take 0.5 mg by mouth | | 0 | | | Activ | | 0.5 mg tablet | 2 times daily. | | | | | e | + + + +---------+------+------+-------+ | FLUoxetine | Take 40 mg by mouth | | 0 | | | Activ | | (PROZAC) 20 mg | Daily. | | | | | e | | capsule | | | | | | | + + + +---------+------+------+-------+ | levothyroxine | Take 75 mcg by mouth | | 0 | | | Activ | | (SYNTHROID, | every morning | | | | | e | | LEVOTHROID) 75 MCG | (before breakfast). | | | | | | | tablet | | | | | | | + + + +---------+------+------+-------+ | traZODone | Take 50 mg by mouth | | 0 | | | Activ | | (DESYREL) 50 mg | 2 times daily. | | | | | e | | tablet | | | | | | | + + + +---------+------+------+-------+ | carBAMazepine | Take 200 mg by mouth | | 0 | | | Activ | | (TEGRETOL) 200 mg | 3 times daily. | | | | | e | | tablet | | | | | | | + + + +---------+------+------+-------+ | diltiazem | Take 300 mg by mouth | | 0 | | | Activ | | (CARDIZEM CD) 300 mg | Daily. | | | | | e | | 24 hr capsule | | | | | | | + + + +---------+------+------+-------+ | amLODIPine | Take 5 mg by mouth | | 0 | | | Activ | | (NORVASC) 5 mg | nightly. | | | | | e | | tablet | | | | | | | + + + +---------+------+------+-------+ | Multiple | Take by mouth | | 0 | | | Activ | | Vitamins-Minerals | Daily. | | | | | e | | (MULTIVITAMIN PO) | | | | | | | + + + +---------+------+------+-------+ | Ascorbic Acid | Take 1,000 mg by | | 0 | | | Activ | | (VITAMIN C) 1000 MG | mouth Daily. | | | | | e | | tablet | | | | | | | + + + +---------+------+------+-------+ | cholecalciferol | Take 1,000 Units by | | 0 | | | Activ | | (VITAMIN D-3) 1,000 | mouth Daily. | | | | | e | | units capsule | | | | | | | + + + +---------+------+------+-------+ | benazepril | Take 40 mg by mouth | | 0 | | | Activ | | (LOTENSIN) 40 MG | nightly. | | | | | e | | tablet | | | | | | | + + + +---------+------+------+-------+ | L-Methylfolate 15 | Take 15 mg by mouth | | 0 | | | Activ | | MG TABS | Daily. | | | | | e | + + + +---------+------+------+-------+ | zolpidem (AMBIEN) | Take 5 mg by mouth | | 0 | | | Activ | | 5 mg tablet | nightly as needed | | | | | e | | | for Sleep. | | | | | | + + + +---------+------+------+-------+ | buPROPion | Take 300 mg by mouth | | 0 | | | Activ | | (WELLBUTRIN XL) 300 | every morning. | | | | | e | | mg 24 hr tablet | | | | | | | + + + +---------+------+------+-------+ | ziprasidone | Take 40 mg by mouth | | 0 | | | Activ | | (GEODON) 40 mg | as needed. | | | | | e | | capsule | | | | | | | + + + +---------+------+------+-------+ | melatonin 3 mg | Take 3 mg by mouth | | 0 | | | Activ | | TABS | nightly. | | | | | e | + + + +---------+------+------+-------+ | diazepam (VALIUM) | Take 5 mg by mouth | | 0 | | | Activ | | 5 mg tablet | Daily as needed for | | | | | e | | | Anxiety. 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/21/2014 | + + + | Heartburn | 01/26/2014 | + + + | Weight loss | 09/26/2013 | + + + | Nocturnal hypoxemia due to emphysema | 09/26/2013 | + + + | detention current use of systemic steroids | 09/26/2013 | + + + | Physical deconditioning | 05/14/2013 | + + + | COPD (chronic obstructive pulmonary disease) | 02/22/2013 | + + + | Shortness of breath | 02/22/2013 | + + + | Hypertension | | + + + | History of pulmonary embolism | | + + + | Bipolar disorder | | + + + | Hypothyroidism | | + + + Immunizations + + + + | Name | Dates Previously Given | Next Due | + + + + | INFLUENZA PF 19 Y OR | 04/04/2013 | | | >,TRIVALENT | | | | RECOMBINANT | | | + + + + | PNEUMOCOCCAL | 12/03/2012 | | | POLYSACCHARIDE | | | | 23-VALENT (PPSV23) | | | + + + + Family History + + +------+ + | Medical History | Relation | Name | Comments | + + +------+ + | Alcohol abuse | Father | | | + + +------+ + | Hypertension | Father | | | + + +------+ + | Macular degen | Father | | | + + +------+ + | Mental illness | Father | | | + + +------+ + | Diabetes | Maternal | | | | | Grandmoth | | | | | er | | | + + +------+ + | Celiac disease | Mother | | | + + +------+ + | Muscle disease | Mother | | ALS | + + +------+ + | Cancer | Sister | | melanoma | + + +------+ + | Rheum arthritis | Sister | | | + + +------+ + + +------+ + + | Relation | Name | Status | Comments | + +------+ + + | Brother | | Alive | | + +------+ + + | Father | | Alive | | + +------+ + + | Maternal Grandmother | | | | | | | (Age | | | | | 96) | | + +------+ + + | Mother | | | ALS | | | | (Age | | | | | 78) | | + +------+ + + | Sister | | | melanoma | | | | (Age | | | | | 34) | | + +------+ + + | Sister | | Alive | | + +------+ + + Social History + + + +--------+ + | Tobacco Use | Types | Packs/Day | Years | Date | | | | | Used | | + + + +--------+ + | Former Smoker | Cigarettes | 3 | 10 | Quit: 07/05/1991 | + + + +--------+ + + +---+---+---+ | Smokeless Tobacco: | | | | | Never Used | | | | + +---+---+---+ + + +---------+ + | Alcohol Use | Drinks/We | oz/Week | Comments | | | ek | | | + + +---------+ + | No | 0 | 0.0 | | | | Standard | | | | | drinks or | | | | | | | | | | equivalen | | | | | t | | | + + +---------+ + + + + | Sex Assigned at [...] | + + Last Filed Vital Signs + + + + | Vital Sign | Reading | Time Taken | + + + + | Blood Pressure | 152/79 | 12/11/2015 1500 PDT | + + + + | Pulse | 70 | 12/11/2015 1500 PDT | + + + + | Temperature | 35.5 C (95.9 F) | 01/18/2015 1100 PDT | + + + + | Respiratory Rate | 16 | 12/11/2015 1500 PDT | + + + + | Oxygen Saturation | 91% | 01/18/2015 1100 PDT | + + + + | Inhaled Oxygen | - | - | | Concentration | | | + + + + | Weight | 53.3 kg (117 lb 9.6 | 12/11/2015 1500 PDT | | | oz) | | + + + + | Height | 157.5 cm (5' 2") | 12/11/2015 1500 PDT | + + + + | Body Mass Index | 21.51 | 12/11/2015 1500 PDT | + + + + Plan of Treatment + + + + + | Health Maintenance | Due Date | Last Done | Comments | + + + + + | Vaccine: | | | | | Dtap/Tdap/Td (1 - | 1 | | | | Tdap) | | | | + + + + + | Vaccine: Zoster (1 | | | | | of 2) | 2 | | | + + + + + | Breast Cancer | | | | | Screening | 7 | | | + + + + + | Vaccine: | | 12/03/2012 | | | Pneumococcal 65+ | 4 | | | | Low/Medium Risk (2 | | | | | of 2 - PCV13) | | | | + + + + + | Vaccine: Influenza | | 04/04/2013 | | | (#1) | 9 | | | + + + + + Implants + +------+--------+ +--------+--------+--------+ | Implanted | Type | Area | Manufacture | Device | Shelf | Model | | | | | r | | Expira | / | | | | | | Identi | tion | Serial | | | | | | fier | Date | / Lot | + +------+--------+ +--------+--------+--------+ | Arsalan Garcian Pls 1cc Aseptic | | Anteri | OSTEOTECH - | | 08/08/ | [id number] | | - [id number]: Qty: | | or: | OSTT | | 2017 | | | 1 on 01/17/2015 by Jose, | | Spine | | | | /[id number] | | Blaine Berry MD | | Enrique | | | | 4-132 | | | | al | | | | / | + +------+--------+ +--------+--------+--------+ | Allograft Lordotic [id number] - | | Anteri | [place] | | 06/12/ | [id number] | | [id number]: Qty: 1 on | | or: | DANEK - DIV | | 2016 | | | 01/17/2015 by Blaine Garcia, | | Spine | [employer] | | | /[id number] | | MD | | Cervic | - SFDK | | | 468 | | | | al | | | | /[id number] | | | | | | | | 4464 | + +------+--------+ +--------+--------+--------+ | Allograft Lordotic [id number] - | | Anteri | [facility] | | 08/15/ | [id number] | | [id number]: Qty: 1 on | | or: | DANEK - DIV | | 2017 | | | 01/17/2015 by Blaine Garcia, | | Spine | [employer] | | | /[id number] | | MD | | Cervic | - SFDK | | | 173 | | | | al | | | | /[id number] | | | | | | | | 4837 | + +------+--------+ +--------+--------+--------+ | Imp Spn Plt Ti Zevo 35mm 2lvl | | Anteri | [place] | | | [id number] | | - [id number]: Qty: 1 | | or: | DANEK - DIV | | | 5 / / | | on 01/17/2015 by Blaine Garcia | | Spine | [employer] | | | | | MD Kristi | | Berthaic | - SFDK | | | | | | | al | | | | | + +------+--------+ +--------+--------+--------+ | Screw D-Thrd Slf-Drl 3.5x15mm | | Anteri | [facility] | | | [id number] | | - [id number]: Qty: 2 | | or: | DANEK - DIV | | | 5 / | | on 01/17/2015 by Blaine Garcia | | Spine | [employer] | | | | | MD Kristi | | Cervic | - SFDK | | | | | | | al | | | | | + +------+--------+ +--------+--------+--------+ | Screw D-Thrd Slf-Drl 3.5x17mm | | Anteri | [facility] | | | [id number] | | - [id number]: Qty: 2 | | or: | DANEK - DIV | | | 7 / | | on 01/17/2015 by Blaine Garcia | | Spine | [employer] | | | | | MD Kristi | | Berthaic | - SFDK | | | | | | | al | | | | | + +------+--------+ +--------+--------+--------+ | Screw D-Thrd Slf-Drl 4.0x15mm | | Anteri | [place] | | | [id number] | | - [id number]: Qty: 2 | | or: | DANEK - DIV | | | / | | on 01/17/2015 by Blaine Garcia | | Spine | [employer] | | | | | MD Kristi | | Cervic | - SFDK | | | | | | | al | | | | | + +------+--------+ +--------+--------+--------+ Results Not on filefrom Last 3 Months Advance Directives Patient has advance care planning documents, and code status on file. For more information, please contact:[facility] [place] [phone] + + + + + | Code Status | Date | Date | Comments | | | Activated | Inactivated | | + + + + + | Full Code | 01/17/2015 | 01/18/2015 | | | | 13:13 | 16:52 | | + + + + +
--- OUTSIDE RECORDS SUMMARY | ~2019-05-08 | XMS | Encounter Summary ---
Demographics + + + | Address | [address] | | | [place] [address] | + + + | Home Phone | | + + + | Preferred Language | Unknown | + + + | Marital Status | Single | + + + | Methodist Affiliation | Unknown | + + + | Race | White | + + + | Ethnic Group | Not or | + + + Author + + + | Author | [facility] | + + + | Organization | [facility] | + + + | Address | Unknown | + + + | Phone | Unavailable | + + + Support + + + + + | Name | Relationship | Address | Phone | + + + + + | Ankita Godoy | ECON | [address] | | | [address], [place] | | | | | [address] | | + + + + + Care Team Providers + +------+ + | Care Property Management Specialist Name | Role | Phone | + +------+ + | Patrick Villalta DO | PCP | | + +------+ + Encounter Details +--------+ + + + + | Date | Type | Department | Care Team | Description | +--------+ + + + + | 01/10/ | Abstract | [facility] | Clinic, | | | 2012 | | [place] [facility] [address] | Gastroenterology | | | | | [place] | | | | | | Mailcode: [place] | | | | | | [facility] | | | | | | [facility]aling, [address] | | | | | | [facility] [place] | | | | | | [address] | | | | | | [phone] | | | +--------+ + + + [...]
--- OUTSIDE RECORDS SUMMARY | ~2019-05-08 | XMS | Clinical Summary ---
Demographics + + + | Address | [address] | | | [place] [address] | + + + | Home Phone | | + + + | Preferred Language | Unknown | + + + | Marital Status | Single | + + + | Confucianist Affiliation | Unknown | + + + | Race | Unknown | + + + | Ethnic Group | Unknown | + + + Author + + + | Author | [facility] | | | and [place] | + + + | Organization | [facility] | | | and [place] [...] Team Providers + +------+ + | Care Dance Choreographer Name | Role | Phone | + [...] | 09/26/2013 | + + + | skilled nursing current use of systemic steroids | 09/26/2013 [...] | OSTEOTECH - | | 08/08/ | [id number] | | - [id number]: Qty: | | or: | OSTT | | 2017 | | | 1 on 01/17/2015 by Jose, | | Spine | | | | /[id number] | | Blaine Berry MD | | Enrique | | | | 4-132 | | | | al | | | | / | + +------+--------+ +--------+--------+--------+ | Allograft Lordotic [id number] - | | Anteri | [facility] | | 06/12/ | [id number] | | [id number]: Qty: 1 on | | or: | DANEK - DIV | | 2016 | | | 01/17/2015 by Blaine Garcia, | | Spine | [employer] | | | /[id number] | | MD | | Cervic | - SFDK | | | 468 | | | | al | | | | /[id number] | | | | | | | | 4464 | + +------+--------+ +--------+--------+--------+ | Allograft Lordotic [id number] - | | Anteri | [facility] | | 08/15/ | [id number] | | [id number]: Qty: 1 on | | or: | DANEK - DIV | | 2017 | | | 01/17/2015 by Blaine Garcia, | | Spine | [employer] | | | /[id number] | | MD | | Cervic | - SFDK | | | 173 | | | | al | | | | /[id number] | | | | | | | | 4837 | + +------+--------+ +--------+--------+--------+ | Imp Spn Plt Ti Zevo 35mm 2lvl | | Anteri | [facility] | | | [id number] | | - [id number]: Qty: 1 | | or: | DANEK [...] | Anteri | [place] | | | [id number] | | - [id number]: Qty: 2 | | or: | DANEK [...] | Anteri | [place] | | | [id number] | | - [id number]: Qty: 2 | | or: | DANEK [...] | Anteri | [place] | | | [id number] | | - [id number]: Qty: 2 | | or: | DANEK [...] status on file. For more information, please contact:[facility] [place] [phone] + + + + + | Code Status | Date | Date | Comments | | | Activated | Inactivated | | + + + + + | Full Code | 01/17/2015 | 01/18/2015 | | | | 13:13 | 16:52 | | + + + + +
--- OUTSIDE RECORDS SUMMARY | 2019-05-08 10:46 | XMS ---
PreManage Notification: MARTHA VALENTINE Security Curbing [place] Events No recent Security Events currently on file CRITERIA MET - RUBIN CARE PROVIDERS Corby Thorpe Current PHONE: Unknown Analia [place] Harrison Current Orthopedic Surgery \T\ Fracture Clinic PHONE: Unknown Harrison Beltran PHONE: Unknown Tien has no Care Guidelines for this patient. ENalini VISIT COUNT (12 MO.) [address] [facility] TOTAL 2 NOTE: Visits indicate total known visits. ED/UCC VISIT TRACKING (12 MO.) 05/08/2019 10:43 [facility] [place] TYPE: Emergency COMPLAINT: - ABD PAIN 08/05/2018 16:46 [facility] [place] TYPE: Emergency COMPLAINT: - FALL DIAGNOSES: - Allergy to seafood - Other lobsterman (current) drug therapy - Allergy status to penicillin - Bipolar disorder, unspecified - Fall same lev from slip/trip w strike agnst oth object, init - Unspecified injury of head, initial encounter - Headache - Allergy status to oth drug/meds/biol subst status - Chronic obstructive pulmonary disease, unspecified - Essential (primary) hypertension - Hypothyroidism, unspecified INPATIENT VISIT TRACKING (12 MO.) No inpatient visits to display in this time frame [email or web address]
== END 2019-05-08 11:03 | disposition left against medical advice (07) ==
LOC: ED 10:43
DX: Z53.21 Procedure and treatment not carried out due to patient leaving prior to being seen by health care provider (principal)